=== PATIENT | female | born 1930 | race Caucasian/White ===

== ENCOUNTER 2016-06-11 15:40 | Inpatient (IN) | payer OTHER, BC ==
[~2016-06-11] VITALS: Ht 147.3 cm; Wt 98.8 kg
[~2016-06-11 15:40] MED LIST: ASPIR 8181 M1 PO; BENICAR40 MG PO; CEFTIN500 MG PO; CENTRUM SILVER1 EAC3 PO; CENTRUM SILVER1 EACH PO; DEMADEX20 MG PO; DILTIAZEM 24HR120 MG PO; GLIPIZIDE ER2.5 MG PO; GLIPIZIDE5 MG PO; GLUCOPHAGE500 MG PO; HYTRIN5 MG PO; KLOR-CON 1010 ME1 PO; LASIX10 MG PO; LEVOTHROID137 MCG PO; LIPITOR20 MG PO; LORATADINE10 M2 PO; LOSARTAN POTASS50 MG PO; METFORMIN HCL500 MG PO; METOLAZONE2.5 MG PO; PRADAXA75 MG PO; SOTALOL80 MG PO; SPIRIVA1 INHALATI IH; SYNTHROID125 MCG PO; TERAZOSIN HCL5 MG PO; TORSEMIDE10 MG PO; TYLENOL EXTRA500 MG PO; WARFARIN SODIUM5 MG PO
[2016-06-11 16:02] LABS: POINT-OF-CARE METER ID UU13113778
[2016-06-11 16:52] LABS: HEMATOCRIT 40.5 % (36.0-46.0); MCH 32.9 PG (29.0-34.0); MCHC 32.1 G/DL (30.0-36.0); MCV 102.5 FL (83-99); MEAN PLAT.VOLUME 10.2 uM^3 (9.5-12.4); PLATELET COUNT 181 K/uL (156-360); RBC DIS.WIDTH-CV 16.5 % (11.8-14.6); RBC DIS.WIDTH-SD 58.5 % (39-53); RED BLOOD COUNT 3.95 M/uL (3.80-5.20); WHITE BLOOD COUNT 6.6 K/uL (4.1-10.2)
[2016-06-11 17:02] LABS: CHLORIDE 103 mEq/L (99-109); POTASSIUM 5.6 mEq/L (3.7-5.4); SODIUM 140 mEq/L (136-147)
[2016-06-11 17:04] LABS: GLUCOSE 147 mg/dL (70-99)
[2016-06-11 17:06] LABS: ANION GAP 16 MEQ/L (2-14)
[2016-06-11 17:08] LABS: GFR ESTIMATE (CALCULATED) 22 mL/min/
[2016-06-11 17:09] LABS: UREA NITROGEN (BUN) 59 mg/dL (9-23)
[2016-06-11 17:20] LABS: TROP-I INTERPRETATION NEGATIVE; TROPONIN-I 0.03 ng/mL (0.0-0.30)
[2016-06-11 18:07] LABS: INFLUENZA A VIRAL ANTIGEN NEGATIVE; INFLUENZA B VIRAL ANTIGEN NEGATIVE
[2016-06-11 18:30] LABS: ADD MIUA? YES; BILIRUBIN NEGATIVE; BLOOD NEGATIVE; COLOR YELLOW ((YELLOW)); GLUCOSE (STRIP) NEGATIVE; KETONES NEGATIVE; LEUKOCYTES LARGE; NITRITE NEGATIVE; PROTEIN (STRIP) 30; SPECIFIC GRAVITY 1.016 (1.000-1.030); UROBILINOGEN 0.2 MG/DL (0.2-1.0)
[2016-06-11 19:16] LABS: BACTERIA RARE; CASTS NONE SEEN /LPF; CRYSTALS NONE SEEN; EPITHELIAL CELLS RARE; MUCUS NONE SEEN; RED BLOOD CELLS 0-5 /HPF (0-5); UCUL ADDED? NO
[2016-06-11 19:44] LABS: EOSINOPHIL (%) 2.7 % (0-5); EOSINOPHIL COUNT 0.2 K/uL (0-0.3); LYMPHOCYTE COUNT 1.1 K/uL (1.0-2.8); MONOCYTE COUNT 0.6 K/uL (0-0.8); NEUTROPHIL (%) 71.9 % (45-76); NEUTROPHIL COUNT 4.8 K/uL (1.8-6.4)
[2016-06-11 21:20] VITALS: BP 112/63
[2016-06-11 21:21] LABS: URIC ACID 10.3 mg/dL (3.1-9.2)
[2016-06-11 21:47] VITALS: BP 116/63
[2016-06-11 23:02] VITALS: BP 118/67
[2016-06-11 23:42] LABS: CARBON DIOXIDE (BICARBONATE) 30.4 MEQ/L (20-31)
[2016-06-11 23:53] LABS: CHLORIDE 105 mEq/L (99-109)
[2016-06-11 23:54] LABS: SODIUM 143 mEq/L (136-147)
[2016-06-11 23:56] LABS: GLUCOSE 188 mg/dL (70-99)
[2016-06-11 23:57] LABS: ANION GAP 15 MEQ/L (2-14)
[2016-06-11 23:58] LABS: TOTAL BILIRUBIN 1.4 mg/dL (0.0-1.0)
[2016-06-11 23:59] LABS: ALKALINE PHOSPHATASE 50 IU/L (3-129); GFR ESTIMATE (CALCULATED) 20 mL/min/
[2016-06-12 00:01] LABS: UREA NITROGEN (BUN) 63 mg/dL (9-23)
[2016-06-12 00:33] LABS: POTASSIUM 6.1 mEq/L (3.7-5.4)
[2016-06-12 04:18] VITALS: BP 129/65
[2016-06-12 06:25] LABS: HEMATOCRIT 36.3 % (36.0-46.0); MCH 33.1 PG (29.0-34.0); MCHC 31.4 G/DL (30.0-36.0); MCV 105.5 FL (83-99); MEAN PLAT.VOLUME 10.7 uM^3 (9.5-12.4); NRBC (%) 0.7 /100 WBC (0-0); PLATELET COUNT 161 K/uL (156-360); RBC DIS.WIDTH-SD 63.5 % (39-53); RED BLOOD COUNT 3.44 M/uL (3.80-5.20); WHITE BLOOD COUNT 5.7 K/uL (4.1-10.2)
[2016-06-12 06:37] LABS: EOSINOPHIL (%) 0.2 % (0-5); IMMATURE GRANULOCYTE (%) 0.2 % (0.0-0.7); LYMPHOCYTE COUNT 0.9 K/uL (1.0-2.8); MONOCYTE (%) 6.5 % (3-12); MONOCYTE COUNT 0.4 K/uL (0-0.8); NEUTROPHIL COUNT 4.4 K/uL (1.8-6.4)
[2016-06-12 06:47] LABS: ANION GAP 13 MEQ/L (2-14); CHLORIDE 105 MEQ/L (99-109); GFR ESTIMATE (CALCULATED) 24 mL/min/; GLUCOSE 136 mg/dL (70-99); MAGNESIUM 1.9 mg/dl (1.3-2.7); SAMPLE HEMOLYSIS CHECK 0; SAMPLE ICTERIC CHECK 0; SAMPLE LIPEMIA CHECK 0; SODIUM 143 MEQ/L (136-147); UREA NITROGEN (BUN) 63 mg/dL (9-23)
[2016-06-12 10:43] VITALS: BP 130/69
[2016-06-12 11:34] VITALS: BP 115/65
[2016-06-12 12:13] LABS: POINT-OF-CARE METER ID UU13113717
[2016-06-12 21:04] VITALS: BP 122/58
[2016-06-12 23:41] VITALS: BP 104/63
[2016-06-13 05:28] VITALS: BP 108/71
[2016-06-13 07:00] VITALS: BP 115/56
[2016-06-13 09:05] LABS: MCH 32.5 PG (29.0-34.0); MCHC 30.8 G/DL (30.0-36.0); MCV 105.8 FL (83-99); MEAN PLAT.VOLUME 10.7 uM^3 (9.5-12.4); PLATELET COUNT 187 K/uL (156-360); RBC DIS.WIDTH-CV 16.9 % (11.8-14.6); RBC DIS.WIDTH-SD 63.4 % (39-53); RED BLOOD COUNT 3.78 M/uL (3.80-5.20); WHITE BLOOD COUNT 6.8 K/uL (4.1-10.2)
[2016-06-13 10:19] LABS: ANION GAP 14 MEQ/L (2-14); CHLORIDE 104 MEQ/L (99-109); POTASSIUM 4.6 MEQ/L (3.7-5.4); SAMPLE HEMOLYSIS CHECK 0; SAMPLE ICTERIC CHECK 0; SAMPLE LIPEMIA CHECK 0; SODIUM 143 MEQ/L (136-147)
[2016-06-13 10:25] LABS: GFR ESTIMATE (CALCULATED) 25 mL/min/; GLUCOSE 169 mg/dL (70-99); UREA NITROGEN (BUN) 62 mg/dL (9-23)
[2016-06-13 12:37] VITALS: BP 127/66
[2016-06-13 16:46] LABS: POINT-OF-CARE METER ID UU13113725
[2016-06-13 20:06] VITALS: BP 125/81
[2016-06-13 21:47] LABS: POINT-OF-CARE METER ID UU13113725
[2016-06-13 22:30] VITALS: BP 95/74
[2016-06-14 04:08] VITALS: BP 106/73
[2016-06-14 04:39] LABS: MCH 33.3 PG (29.0-34.0); MCHC 31.8 G/DL (30.0-36.0); MCV 104.7 FL (83-99); MEAN PLAT.VOLUME 9.9 uM^3 (9.5-12.4); PLATELET COUNT 150 K/uL (156-360); RBC DIS.WIDTH-CV 16.5 % (11.8-14.6); RBC DIS.WIDTH-SD 59.7 % (39-53); RED BLOOD COUNT 3.63 M/uL (3.80-5.20); WHITE BLOOD COUNT 5.9 K/uL (4.1-10.2)
[2016-06-14 06:08] LABS: POINT-OF-CARE METER ID UU13113725
[2016-06-14 08:17] VITALS: BP 110/63
[2016-06-14 08:24] LABS: CHLORIDE 107 mEq/L (99-109); POTASSIUM 3.9 mEq/L (3.7-5.4); SODIUM 142 mEq/L (136-147)
[2016-06-14 08:26] LABS: GLUCOSE 171 mg/dL (70-99)
[2016-06-14 08:27] LABS: ANION GAP 16 MEQ/L (2-14)
[2016-06-14 08:30] LABS: GFR ESTIMATE (CALCULATED) 30 mL/min/
[2016-06-14 08:31] LABS: UREA NITROGEN (BUN) 56 mg/dL (9-23)
[2016-06-14 11:58] VITALS: BP 125/80
[2016-06-14 16:41] VITALS: BP 112/79
[2016-06-14 21:35] VITALS: BP 131/88
[2016-06-14 21:53] LABS: POINT-OF-CARE METER ID UU13113725
[2016-06-14 23:14] VITALS: BP 115/72
[2016-06-15 02:51] LABS: CHLORIDE 105 mEq/L (99-109); POTASSIUM 3.7 mEq/L (3.7-5.4); SODIUM 143 mEq/L (136-147)
[2016-06-15 02:53] LABS: GLUCOSE 188 mg/dL (70-99)
[2016-06-15 02:54] LABS: ANION GAP 14 MEQ/L (2-14)
[2016-06-15 02:57] LABS: GFR ESTIMATE (CALCULATED) 30 mL/min/
[2016-06-15 02:58] LABS: UREA NITROGEN (BUN) 56 mg/dL (9-23)
[2016-06-15 03:05] VITALS: BP 103/65
[2016-06-15 07:32] VITALS: BP 104/67
[2016-06-15 12:16] LABS: POINT-OF-CARE METER ID UU13113725
[2016-06-15 16:33] VITALS: BP 120/56
[2016-06-15 19:18] VITALS: BP 125/76
[2016-06-15 22:46] VITALS: BP 108/73
[2016-06-16] VITALS (7 sets, daily range): BP systolic 98–133; BP diastolic 53–81
[2016-06-16 08:26] LABS: HEMATOCRIT 39.2 % (36.0-46.0); MCH 32.2 PG (29.0-34.0); MCHC 30.6 G/DL (30.0-36.0); MCV 105.1 FL (83-99); MEAN PLAT.VOLUME 10.3 uM^3 (9.5-12.4); RBC DIS.WIDTH-CV 17.3 % (11.8-14.6); RBC DIS.WIDTH-SD 62.1 % (39-53); RED BLOOD COUNT 3.73 M/uL (3.80-5.20)
[2016-06-16 08:28] LABS: WHITE BLOOD COUNT 8.2 K/uL (4.1-10.2)
[2016-06-16 08:29] LABS: PLATELET COUNT 196 K/uL (156-360)
[2016-06-16 09:17] LABS: ANION GAP 11 MEQ/L (2-14); CHLORIDE 101 MEQ/L (99-109); GFR ESTIMATE (CALCULATED) 32 mL/min/; GLUCOSE 203 mg/dL (70-99); POTASSIUM 4.3 MEQ/L (3.7-5.4); SAMPLE HEMOLYSIS CHECK 0; SAMPLE ICTERIC CHECK 0; SAMPLE LIPEMIA CHECK 0; SODIUM 140 MEQ/L (136-147); UREA NITROGEN (BUN) 60 mg/dL (9-23)
[2016-06-16 21:31] LABS: POINT-OF-CARE METER ID UU13113725
[2016-06-17 04:16] VITALS: BP 125/69
[2016-06-17 06:15] LABS: HEMATOCRIT 38.2 % (36.0-46.0); MCH 33.7 PG (29.0-34.0); MCHC 31.9 G/DL (30.0-36.0); MCV 105.5 FL (83-99); MEAN PLAT.VOLUME 10.8 uM^3 (9.5-12.4); PLATELET COUNT 187 K/uL (156-360); RBC DIS.WIDTH-CV 17.5 % (11.8-14.6); RBC DIS.WIDTH-SD 63.5 % (39-53); RED BLOOD COUNT 3.62 M/uL (3.80-5.20); WHITE BLOOD COUNT 8.3 K/uL (4.1-10.2)
[2016-06-17 06:37] LABS: POINT-OF-CARE METER ID UU13113725
[2016-06-17 06:41] LABS: ANION GAP 8 MEQ/L (2-14); CHLORIDE 103 MEQ/L (99-109); GFR ESTIMATE (CALCULATED) 32 mL/min/; GLUCOSE 189 mg/dL (70-99); POTASSIUM 4.3 MEQ/L (3.7-5.4); SAMPLE HEMOLYSIS CHECK 0; SAMPLE ICTERIC CHECK 0; SAMPLE LIPEMIA CHECK 0; SODIUM 140 MEQ/L (136-147); UREA NITROGEN (BUN) 63 mg/dL (9-23)
[2016-06-17 08:40] VITALS: BP 150/63
[2016-06-17 11:34] VITALS: BP 112/70
[2016-06-17 15:11] LABS: POINT-OF-CARE METER ID UU13113819
[2016-06-17 17:14] LABS: POINT-OF-CARE METER ID UU13113819
[2016-06-17 19:55] VITALS: BP 127/75
[2016-06-17 21:17] LABS: POINT-OF-CARE METER ID UU13113781
[2016-06-18] VITALS (7 sets, daily range): BP systolic 96–132; BP diastolic 56–86
[2016-06-18 06:47] LABS: PLATELET COUNT 177 K/uL (156-360)
[2016-06-18 07:01] LABS: EOSINOPHIL (%) 0.1 % (0-5); HEMATOCRIT 40.6 % (36.0-46.0); IMMATURE GRANULOCYTE (%) 0.5 % (0.0-0.7); LYMPHOCYTE COUNT 0.7 K/uL (1.0-2.8); MCH 33.9 PG (29.0-34.0); MCHC 31.8 G/DL (30.0-36.0); MCV 106.6 FL (83-99); MONOCYTE COUNT 0.9 K/uL (0-0.8); NEUTROPHIL (%) 79.4 % (45-76); NEUTROPHIL COUNT 6.2 K/uL (1.8-6.4); RBC DIS.WIDTH-CV 18.4 % (11.8-14.6); RBC DIS.WIDTH-SD 67.4 % (39-53); RED BLOOD COUNT 3.81 M/uL (3.80-5.20); WHITE BLOOD COUNT 7.8 K/uL (4.1-10.2)
[2016-06-18 07:19] LABS: HEMATOLOGY COMMENT 1 SMEAR COMPATIBLE; USER ID CL
[2016-06-18 07:21] LABS: ANION GAP 12 MEQ/L (2-14); CHLORIDE 104 MEQ/L (99-109); GFR ESTIMATE (CALCULATED) 32 mL/min/; GLUCOSE 192 mg/dL (70-99); POTASSIUM 4.8 MEQ/L (3.7-5.4); SAMPLE HEMOLYSIS CHECK 1; SAMPLE ICTERIC CHECK 0; SAMPLE LIPEMIA CHECK 0; SODIUM 139 MEQ/L (136-147); UREA NITROGEN (BUN) 67 mg/dL (9-23)
[2016-06-18 07:40] LABS: POINT-OF-CARE METER ID UU13113698
[2016-06-18 11:04] LABS: POINT-OF-CARE METER ID UU13113698
[2016-06-18 16:29] LABS: POINT-OF-CARE METER ID UU13113698
[2016-06-18 20:23] LABS: HEMATOCRIT 41.1 % (36.0-46.0); MCH 33.7 PG (29.0-34.0); MCHC 31.6 G/DL (30.0-36.0); MCV 106.5 FL (83-99); MEAN PLAT.VOLUME 11.1 uM^3 (9.5-12.4); PLATELET COUNT 175 K/uL (156-360); RBC DIS.WIDTH-CV 18.4 % (11.8-14.6); RBC DIS.WIDTH-SD 67.6 % (39-53); RED BLOOD COUNT 3.86 M/uL (3.80-5.20); WHITE BLOOD COUNT 7.8 K/uL (4.1-10.2)
[2016-06-18 20:53] LABS: EOSINOPHIL (%) 0.1 % (0-5); HEMATOLOGY COMMENT 1 SMEAR COMPATIBLE; IMMATURE GRANULOCYTE (%) 0.6 % (0.0-0.7); IMMATURE GRANULOCYTE COUNT 0.1 K/uL; LYMPHOCYTE COUNT 1.2 K/uL (1.0-2.8); MONOCYTE (%) 10.3 % (3-12); MONOCYTE COUNT 0.8 K/uL (0-0.8); NEUTROPHIL (%) 73.9 % (45-76); NEUTROPHIL COUNT 5.7 K/uL (1.8-6.4); PLAT.SUFFICIENCY ADEQUATE
[2016-06-18 20:56] LABS: ANION GAP 15 MEQ/L (2-14); CHLORIDE 103 MEQ/L (99-109); GFR ESTIMATE (CALCULATED) 32 mL/min/; GLUCOSE 267 mg/dL (70-99); POTASSIUM 4.9 MEQ/L (3.7-5.4); SAMPLE HEMOLYSIS CHECK 0; SAMPLE ICTERIC CHECK 0; SAMPLE LIPEMIA CHECK 0; SODIUM 136 MEQ/L (136-147); UREA NITROGEN (BUN) 72 mg/dL (9-23)
[2016-06-18 21:29] LABS: POINT-OF-CARE METER ID UU13113781
[2016-06-19 03:20] VITALS: BP 133/68
[2016-06-19 05:52] LABS: HEMATOCRIT 41.3 % (36.0-46.0); MCH 32.7 PG (29.0-34.0); MCHC 30.8 G/DL (30.0-36.0); MCV 106.4 FL (83-99); MEAN PLAT.VOLUME 10.8 uM^3 (9.5-12.4); PLATELET COUNT 191 K/uL (156-360); RBC DIS.WIDTH-CV 18.5 % (11.8-14.6); RBC DIS.WIDTH-SD 67.9 % (39-53); RED BLOOD COUNT 3.88 M/uL (3.80-5.20); WHITE BLOOD COUNT 9.1 K/uL (4.1-10.2)
[2016-06-19 06:11] LABS: ANION GAP 12 MEQ/L (2-14); CHLORIDE 104 MEQ/L (99-109); GFR ESTIMATE (CALCULATED) 30 mL/min/; GLUCOSE 172 mg/dL (70-99); POTASSIUM 4.4 MEQ/L (3.7-5.4); SAMPLE HEMOLYSIS CHECK 0; SAMPLE ICTERIC CHECK 0; SAMPLE LIPEMIA CHECK 0; SODIUM 140 MEQ/L (136-147); UREA NITROGEN (BUN) 73 mg/dL (9-23)
[2016-06-19 07:40] VITALS: BP 124/68
[2016-06-19 08:17] LABS: POINT-OF-CARE USER ID NUTSLF44
[2016-06-19 11:45] VITALS: BP 127/76
[2016-06-19 11:58] LABS: POINT-OF-CARE USER ID NUTSLF44
[2016-06-19 15:45] VITALS: BP 130/66
[2016-06-19 17:29] LABS: POINT-OF-CARE METER ID UU13113781; POINT-OF-CARE USER ID ENVKC36
[2016-06-19 19:25] VITALS: BP 120/76
[2016-06-19 21:06] LABS: POINT-OF-CARE METER ID UU13113781
[2016-06-19 23:30] VITALS: BP 129/75
[2016-06-20 03:15] VITALS: BP 135/78
[2016-06-20 06:43] LABS: MEAN PLAT.VOLUME 11.1 uM^3 (9.5-12.4); PLATELET COUNT 178 K/uL (156-360)
[2016-06-20 07:02] LABS: HEMATOCRIT 42.7 % (36.0-46.0); MCH 34.3 PG (29.0-34.0); MCHC 32.1 G/DL (30.0-36.0); MCV 106.8 FL (83-99); RBC DIS.WIDTH-CV 18.7 % (11.8-14.6); RBC DIS.WIDTH-SD 70.2 % (39-53)
[2016-06-20 07:16] LABS: ABS NEUTROPHIL COUNT 6.57; ANISOCYTOSIS 1+; EOSINOPHIL (%) 0.9 % (0-5); EOSINOPHIL ABS CT 0.08; EOSINOPHIL COUNT 0.1 K/uL (0-0.3); IMMATURE GRANULOCYTE (%) 0.4 % (0.0-0.7); LYMPHOCYTE COUNT 0.7 K/uL (1.0-2.8); MACROCYTES 2+; MONOCYTE (%) 12.6 % (3-12); NEUTROPHIL (%) 77.4 % (45-76); NEUTROPHIL COUNT 6.2 K/uL (1.8-6.4); PLAT.SUFFICIENCY ADEQUATE; POLYCHROMASIA 1+
[2016-06-20 07:30] LABS: ANION GAP 15 MEQ/L (2-14); CHLORIDE 104 MEQ/L (99-109); GFR ESTIMATE (CALCULATED) 35 mL/min/; GLUCOSE 140 mg/dL (70-99); POTASSIUM 4.5 MEQ/L (3.7-5.4); SAMPLE HEMOLYSIS CHECK 0; SAMPLE ICTERIC CHECK 0; SAMPLE LIPEMIA CHECK 0; SODIUM 140 MEQ/L (136-147); UREA NITROGEN (BUN) 74 mg/dL (9-23)
[2016-06-20 07:40] VITALS: BP 142/68
[2016-06-20 11:30] VITALS: BP 112/62
[2016-06-20 15:30] VITALS: BP 128/68
[2016-06-20 20:10] VITALS: BP 133/90
[2016-06-20 21:37] LABS: POINT-OF-CARE METER ID UU14174216
[2016-06-20 23:15] VITALS: BP 104/56
[2016-06-21 03:15] VITALS: BP 125/68
[2016-06-21 06:31] LABS: HEMATOCRIT 42.1 % (36.0-46.0); MCH 34.2 PG (29.0-34.0); MCHC 32.5 G/DL (30.0-36.0); MEAN PLAT.VOLUME 11.1 uM^3 (9.5-12.4); NRBC (%) 1.1 /100 WBC (0-0); PLATELET COUNT 151 K/uL (156-360); RBC DIS.WIDTH-CV 18.4 % (11.8-14.6); RBC DIS.WIDTH-SD 67.5 % (39-53); RED BLOOD COUNT 4.01 M/uL (3.80-5.20); WHITE BLOOD COUNT 8.1 K/uL (4.1-10.2)
[2016-06-21 06:48] LABS: EOSINOPHIL (%) 1.4 % (0-5); EOSINOPHIL COUNT 0.1 K/uL (0-0.3); IMMATURE GRANULOCYTE (%) 0.4 % (0.0-0.7); LYMPHOCYTE COUNT 0.9 K/uL (1.0-2.8); MONOCYTE (%) 11.6 % (3-12); MONOCYTE COUNT 0.9 K/uL (0-0.8); NEUTROPHIL (%) 75.5 % (45-76); NEUTROPHIL COUNT 6.1 K/uL (1.8-6.4)
[2016-06-21 07:11] LABS: ANION GAP 11 MEQ/L (2-14); CHLORIDE 104 MEQ/L (99-109); GFR ESTIMATE (CALCULATED) 45 mL/min/; GLUCOSE 120 mg/dL (70-99); POTASSIUM 4.1 MEQ/L (3.7-5.4); SAMPLE HEMOLYSIS CHECK 0; SAMPLE ICTERIC CHECK 0; SAMPLE LIPEMIA CHECK 0; SODIUM 140 MEQ/L (136-147); UREA NITROGEN (BUN) 64 mg/dL (9-23)
[2016-06-21 08:33] LABS: POINT-OF-CARE METER ID UU14174216; POINT-OF-CARE USER ID NUTSLF44
[2016-06-21 09:18] VITALS: BP 123/71
[2016-06-21 11:30] VITALS: BP 125/70
[2016-06-21 11:37] LABS: POINT-OF-CARE METER ID UU14174216; POINT-OF-CARE USER ID NUTSLF44
[2016-06-21 16:12] VITALS: BP 120/64
[2016-06-21 16:34] LABS: POINT-OF-CARE METER ID UU13113698
[2016-06-21 19:45] VITALS: BP 149/74
[2016-06-21 21:50] LABS: POINT-OF-CARE METER ID UU14174216
[2016-06-22] VITALS (7 sets, daily range): BP systolic 131–166; BP diastolic 61–89
[2016-06-22 05:19] LABS: HEMATOCRIT 43.8 % (36.0-46.0); MCH 34.4 PG (29.0-34.0); MCHC 32.4 G/DL (30.0-36.0); MCV 106.1 FL (83-99); MEAN PLAT.VOLUME 10.9 uM^3 (9.5-12.4); PLATELET COUNT 187 K/uL (156-360); RBC DIS.WIDTH-CV 18.3 % (11.8-14.6); RBC DIS.WIDTH-SD 68.2 % (39-53); RED BLOOD COUNT 4.13 M/uL (3.80-5.20); WHITE BLOOD COUNT 7.9 K/uL (4.1-10.2)
[2016-06-22 05:40] LABS: EOSINOPHIL (%) 0.9 % (0-5); EOSINOPHIL COUNT 0.1 K/uL (0-0.3); IMMATURE GRANULOCYTE (%) 0.3 % (0.0-0.7); LYMPHOCYTE COUNT 0.9 K/uL (1.0-2.8); MONOCYTE (%) 6.7 % (3-12); MONOCYTE COUNT 0.5 K/uL (0-0.8); NEUTROPHIL (%) 80.9 % (45-76); NEUTROPHIL COUNT 6.4 K/uL (1.8-6.4)
[2016-06-22 05:44] LABS: ANION GAP 10 MEQ/L (2-14); CHLORIDE 101 MEQ/L (99-109); GFR ESTIMATE (CALCULATED) 45 mL/min/; GLUCOSE 137 mg/dL (70-99); POTASSIUM 3.7 MEQ/L (3.7-5.4); SAMPLE HEMOLYSIS CHECK 0; SAMPLE ICTERIC CHECK 0; SAMPLE LIPEMIA CHECK 0; SODIUM 142 MEQ/L (136-147); UREA NITROGEN (BUN) 54 mg/dL (9-23)
[2016-06-22 12:33] LABS: DIGOXIN < 0.3 ng/mL (0.8-2.0)
[2016-06-22 20:39] LABS: POINT-OF-CARE METER ID UU13113698; POINT-OF-CARE USER ID ENVMNS
[2016-06-23 04:07] VITALS: BP 145/84
[2016-06-23 05:54] LABS: HEMATOCRIT 41.9 % (36.0-46.0); MCH 33.3 PG (29.0-34.0); MCHC 31.7 G/DL (30.0-36.0); MCV 104.8 FL (83-99); MEAN PLAT.VOLUME 10.5 uM^3 (9.5-12.4); PLATELET COUNT 165 K/uL (156-360); RBC DIS.WIDTH-SD 66.9 % (39-53); WHITE BLOOD COUNT 8.2 K/uL (4.1-10.2)
[2016-06-23 06:21] LABS: EOSINOPHIL (%) 1.8 % (0-5); EOSINOPHIL COUNT 0.2 K/uL (0-0.3); IMMATURE GRANULOCYTE (%) 0.1 % (0.0-0.7); LYMPHOCYTE COUNT 0.7 K/uL (1.0-2.8); MONOCYTE (%) 13.8 % (3-12); MONOCYTE COUNT 1.1 K/uL (0-0.8); NEUTROPHIL (%) 75.4 % (45-76); NEUTROPHIL COUNT 6.2 K/uL (1.8-6.4)
[2016-06-23 06:32] LABS: ANION GAP 10 MEQ/L (2-14); CHLORIDE 101 MEQ/L (99-109); GFR ESTIMATE (CALCULATED) 56 mL/min/; GLUCOSE 123 mg/dL (70-99); POTASSIUM 3.3 MEQ/L (3.7-5.4); SAMPLE HEMOLYSIS CHECK 0; SAMPLE ICTERIC CHECK 0; SAMPLE LIPEMIA CHECK 0; SODIUM 142 MEQ/L (136-147); UREA NITROGEN (BUN) 41 mg/dL (9-23)
[2016-06-23 07:13] VITALS: BP 145/73
[2016-06-23 11:25] VITALS: BP 136/65
[2016-06-23] MEDS ORDERED: LORATADINE10 M2 PO (14:00)
[2016-06-23] MEDS ORDERED: ELIQUIS2.5 MG PO (14:00)
[2016-06-23] MEDS ORDERED: DIGOXIN125 MCG PO (14:01)
[2016-06-23] MEDS ORDERED: LIPITOR20 MG PO (14:01)
[2016-06-23] MEDS ORDERED: LOPRESSOR100 M1 PO (14:01)
[2016-06-23] MEDS ORDERED: SOTALOL80 MG PO (14:02)
[2016-06-23] MEDS ORDERED: ASPIR-LOW81 MG PO (14:02)
[2016-06-23] MEDS ORDERED: PREDNISONE20 MG PO (14:04)
[2016-06-23] MEDS ORDERED: FUROSEMIDE80 MG PO (14:04)
[2016-06-23] MEDS ORDERED: ADVAIR HFA120 INHALA IH (14:04)
[2016-06-23] MEDS ORDERED: KLOR-CON 1010 ME1 PO (14:05)
[2016-06-23] MEDS ORDERED: PROAIR RESPICL90 MCG IH (14:07)
== END 2016-06-23 15:20 | disposition home health service (06) | DRG 286 ==
LOC: EME 15:40 → EDOF 19:10 → 5EAST 19:10 → 4EAST 19:10 → 5EAST 21:19 → 4EAST 06-17 18:12
PROVIDERS: Emergency Medicine; Hospitalist; Internal Medicine; Internal Medicine Cardiovascular Disease; Internal Medicine Nephrology; Physician Assistant Medical
DX: I50.23 Acute on chronic systolic (congestive) heart failure (principal); J96.01 Acute respiratory failure with hypoxia; A41.9 Sepsis, unspecified organism; J44.1 Chronic obstructive pulmonary disease with (acute) exacerbation; J44.0 Chronic obstructive pulmonary disease with (acute) lower respiratory infection; J18.9 Pneumonia, unspecified organism; N39.0 Urinary tract infection, site not specified; N17.9 Acute kidney failure, unspecified; E87.2 Acidosis; I13.0 Hypertensive heart and chronic kidney disease with heart failure and stage 1 through stage 4 chronic kidney disease, or unspecified chronic kidney disease; Z68.42 Body mass index [BMI] 45.0-49.9, adult; E86.0 Dehydration; I48.0 Paroxysmal atrial fibrillation; E11.21 Type 2 diabetes mellitus with diabetic nephropathy; E11.22 Type 2 diabetes mellitus with diabetic chronic kidney disease; N18.3 Chronic kidney disease, stage 3 (moderate); E78.5 Hyperlipidemia, unspecified; I25.10 Atherosclerotic heart disease of native coronary artery without angina pectoris; I25.5 Ischemic cardiomyopathy; I27.2 Other secondary pulmonary hypertension; I08.1 Rheumatic disorders of both mitral and tricuspid valves; G47.33 Obstructive sleep apnea (adult) (pediatric); E11.319 Type 2 diabetes mellitus with unspecified diabetic retinopathy without macular edema; H54.42 Blindness, left eye, normal vision right eye; E89.0 Postprocedural hypothyroidism; E66.01 Morbid (severe) obesity due to excess calories; I25.2 Old myocardial infarction; Z95.0 Presence of cardiac pacemaker; Z79.01 Long term (current) use of anticoagulants; I69.320 Aphasia following cerebral infarction
CPT/HCPCS: 71010; 71020; 71250; 74176; 78582; 80048; 80048 91; 80053; 80069; 80162; 81003; 82803; 82948; 83605; 83735; 83880; 84443; 84484; 84550; 85025; 85025 91; 85027; 85379; 85730; 87040; 87502; 93005; 93306; 93308; 94640; 94640 76; 94760; 94799; 97530 GO; 97530 GP; 99281; 99285; A9540; A9567; C1769; C1887; J0696; J1160; J1644; J1815; J1940; J2250; J3010; J7030; J7040; J7050; J7120; J7512